=== PATIENT | male | born 1975 | race American Indian/Alaskan Native ===

== ENCOUNTER 2017-11-21 08:52 | Emergency (ER) | payer SELFPAY ==
[2017-11-21 09:21] VITALS: BP 139/90
== END 2017-11-21 09:35 | disposition left against medical advice (07) ==
LOC: ED 08:52
DX: M79.646 Pain in unspecified finger(s) (principal); Z53.21 Procedure and treatment not carried out due to patient leaving prior to being seen by health care provider